=== PATIENT | female | born 1990 | race Caucasian/White ===

== ENCOUNTER 2018-06-25 01:49 | Outpatient (CLI) | payer OTHER ==
[2018-06-25] MEDS ORDERED: PROMETHAZINE HCL INJ 25 MG/1 ML VIAL IV ONE (02:01)
[2018-06-25] MEDS ORDERED: NALBUPHINE HCL INJ 10 MG/1 ML AMPULE INJ ONE (02:01)
[2018-06-25 02:26] LABS: APPEARANCE,URINE CLOUDY; BILIRUBIN,URINE NEGATIVE (NEGATIVE); COLOR,URINE YELLOW; GLUCOSE, URINE NEGATIVE (NEGATIVE); KETONES,URINE 20 mg/dL (NEGATIVE); LEUKOCYTE ESTERASE,URINE SMALL (NEGATIVE); NITRITE,URINE NEGATIVE (NEGATIVE); PROTEIN,URINE NEGATIVE (NEGATIVE); URINE SPECIFIC GRAVITY 1.009; UROBILINOGEN,URINE NEGATIVE mg/dL (<2.0)
[2018-06-25 02:41] LABS: URINE AMPHETAMINES SCREEN NEGATIVE; URINE BARBITURATES SCREEN NEGATIVE; URINE BENZODIAZEPINES SCREEN NEGATIVE; URINE COCAINE SCREEN NEGATIVE; URINE MARIJUANA (THC) SCREEN NEGATIVE; URINE METHADONE SCREEN NEGATIVE; URINE PHENCYCLIDINE SCREEN NEGATIVE
--- NOTE | 2018-06-25 03:12 | Non Stress Test Report ---
Non Stress Test Datetime Report Generated by CPN: 06/25/2018 03:11 DEMOGRAPHIC Test Number: 1 EGA NST: 37.5 INDICATION Indication for Study: Other Indication for Study (NST) Other: Labor check VITAL SIGNS Temperature - NST: 98.9 Pulse - NST: 80 RESP - NST: 18 NBPSYS NST: 119 NBPDIA NST: 66 URINE RESULTS Urine Protein, NST: Negative Urine Ketones - NST: Positive Urine Glucose - NST: Negative Urine Blood - NST: Negative MONITORING Monitor Explained: Monitor Explained; Test Explained; Patient Verbalized Understanding Time on Monitor: 06/25/2018 02:08 Time off Monitor: 06/25/2018 02:28 NST Duration: 20 NST INTERVENTIONS NST Interventions: PO Hydration Physician Notified NST: Dr. Myriam BABY A: [id number] BABY A Movement : Present Contraction Frequency : 2-2.5 FHR Baseline : 145 Accelerations : 15X15 Decelerations : None Decelerations : None Variability : Moderate 6-25bpm NST Review: Meets Criteria for Reactive NST NST Review and Verified By : NATTY Pardo Results: Reactive NST REPORT Report Trigger: Send Report
== END 2018-06-25 04:29 | disposition home or self-care (01) ==
LOC: LC 01:49
PROVIDERS: ATTEND Student in an Organized Health Care Education/Training Program
PROC: 4A1HXCZ Monitoring of Products of Conception, Cardiac Rate, External Approach (ICD-10-PCS; principal; 2018-06-25)
DX: O47.1 False labor at or after 37 completed weeks of gestation (principal); Z3A.37 37 weeks gestation of pregnancy
CPT/HCPCS: 59025; 80307; 81005

== ENCOUNTER 2018-07-14 10:34 | Outpatient (CLI) | payer OTHER | END 2018-07-14 11:20 | disposition home or self-care (01) | LOC: LC 10:34 | PROVIDERS: ATTEND Obstetrics & Gynecology | PROC: 4A1HXCZ Monitoring of Products of Conception, Cardiac Rate, External Approach (ICD-10-PCS; principal; 2018-07-14) | DX: O48.0 Post-term pregnancy (principal); Z3A.40 40 weeks gestation of pregnancy | CPT/HCPCS: 59025 ==

== ENCOUNTER 2018-07-15 22:09 | Outpatient (CLI) | payer OTHER ==
--- NOTE | 2018-07-15 22:14 | Non Stress Test Report ---
Non Stress Test Datetime Report Generated by CPN: 07/15/2018 22:14 DEMOGRAPHIC Test Number: 2 EGA NST: 40.3 INDICATION Indication for Study: Ordered by Provider Indication for Study (NST) Other: postdates MONITORING Monitor Explained: Monitor Explained; Test Explained; Patient Verbalized Understanding Time on Monitor: 07/14/2018 10:43 Time off Monitor: 07/14/2018 11:20 NST Duration: 37 NST INTERVENTIONS NST Interventions: PO Hydration; Reposition Patient Physician Notified NST: J Rosales CNM BABY A: [id number] BABY A Movement : Present Contraction Frequency : X2 FHR Baseline : 140 Accelerations : 15X15 Decelerations : None Variability : Moderate 6-25bpm NST Review: Meets Criteria for Reactive NST NST Review and Verified By : Reed KANG RN NST Results: Reactive NST REPORT Report Trigger: Send Report
[2018-07-15 22:47] LABS: APPEARANCE,URINE SLIGHTLY-CLOUDY; BILIRUBIN,URINE NEGATIVE (NEGATIVE); COLOR,URINE YELLOW; GLUCOSE, URINE NEGATIVE (NEGATIVE); KETONES,URINE 20 mg/dL (NEGATIVE); LEUKOCYTE ESTERASE,URINE NEGATIVE (NEGATIVE); NITRITE,URINE NEGATIVE (NEGATIVE); PROTEIN,URINE NEGATIVE (NEGATIVE); URINE SPECIFIC GRAVITY 1.012; UROBILINOGEN,URINE NEGATIVE mg/dL (<2.0)
[2018-07-15 23:26] LABS: URINE AMPHETAMINES SCREEN NEGATIVE; URINE BARBITURATES SCREEN NEGATIVE; URINE BENZODIAZEPINES SCREEN NEGATIVE; URINE COCAINE SCREEN NEGATIVE; URINE MARIJUANA (THC) SCREEN NEGATIVE; URINE METHADONE SCREEN NEGATIVE; URINE PHENCYCLIDINE SCREEN NEGATIVE
== END 2018-07-16 00:52 | disposition home or self-care (01) ==
LOC: LC 22:09
PROVIDERS: ATTEND Obstetrics & Gynecology
PROC: 4A1HXCZ Monitoring of Products of Conception, Cardiac Rate, External Approach (ICD-10-PCS; principal; 2018-07-15)
DX: O48.0 Post-term pregnancy (principal); Z3A.40 40 weeks gestation of pregnancy
CPT/HCPCS: 80307; 81005

== ENCOUNTER 2018-07-16 01:01 | Inpatient (IN) | payer OTHER ==
[2018-07-16] MEDS: RINGERS SOLUTION,LACTATED 1,000 ML IV PRN ×2 (01:24→03:47)
[2018-07-16 01:30] LABS: ABSOLUTE LYMPHOCYTES (AUTO) 2.1 10^3/uL (0.5-4.7); ABSOLUTE MONOCYTES (AUTO) 0.9 10^3/uL (0.1-1.4); BASOPHILS % (AUTO) 0.5 % (0-2); EOSINOPHILS % (AUTO) 0.4 % (0-6); HEMATOCRIT 37.3 % (36.0-47.0); HEMOGLOBIN 12.7 g/dL (12.0-15.5); LYMPHOCYTES % (AUTO) 23.3 % (13-45); MEAN CORPUSCULAR HEMOGLOBIN 29.1 pg (27.0-33.4); MEAN CORPUSCULAR HGB CONC 34.1 g/dL (32.0-36.0); MEAN CORPUSCULAR VOLUME 85 fl (80-97); MONOCYTES % (AUTO) 9.6 % (3-13); PLATELET COUNT 132 10^3/uL (150-450); RED BLOOD COUNT 4.37 10^6/uL (3.72-5.28); SEGMENTED NEUTROPHILS % (AUTO) 66.2 % (42-78); TOTAL CELLS COUNTED % (AUTO) 100 %; WHITE BLOOD COUNT 9.1 10^3/uL (4.0-10.5)
[2018-07-16] MEDS ORDERED: EPHEDRINE SULFATE INJ 50 MG/1 ML AMPULE ONE (03:58)
[2018-07-16] MEDS ORDERED: FENTANYL/BUPIVACAINE/NS/PF 300 MCG/150 ML RTUINJ EPI ONE (03:58)
[2018-07-16] MEDS ORDERED: FENTANYL CITRATE INJ/PF 100 MCG/2 ML AMPUL ONE (03:58)
[2018-07-16] MEDS ORDERED: BUPIVACAINE HCL 0.25 % INJ/PF (2.5 MG/1 ML) 30 ML VIAL ONE (03:58)
[2018-07-16] MEDS ORDERED: LIDOCAINE 2%/EPINEPHRINE INJ 20 ML VIAL ONE (03:59)
--- NOTE | 2018-07-16 05:01 | L&D Progress Notes ---
PROGRESS NOTES Datetime Report Generated by CPN: 07/16/2018 05:01 PROGRESS NOTE Impression: Normal Progression of Labor; Rupture of Membranes Plan: Continue Present Management Informed Consent Obtained: Vaginal Delivery Vital Signs : Reviewed; Within Normal Limits Comment: @ 40+5, uncomplicated PNC, admitted w/SROM. Has progressed to 2, currently has a epidural. GBS neg. anticapate . LAST VAGINAL EXAM-NURSING Dilitation: 5.0 Dilitation: 3.0 Dilitation: 2.5 Dilitation: 1.0 Dilitation: 1.0 Effacement: 60 Effacement: 60 Effacement: 50 Effacement: 50 Effacement: 50 Station: -2 Station: -2 Station: -2 Station: -3 Station: -3 FETUS A FHR - Baseline: 130s Monitoring: External US Variability: Moderate 6-25bpm Decelerations: None : 40+5 Estimated Weight (gm): 4200 SIGNATURE SIGNATURE: [id number] SIGNATURE: [id number] SIGNATURE: [id number] Signature: with User ID: [email or web address]
[2018-07-16] MEDS ORDERED: LIDOCAINE 1% INJ-PF (10 MG/ML) 30 ML SDV ONE (05:40)
[2018-07-16] MEDS ORDERED: MISOPROSTOL 0.2 MG TABLET ONE (05:40)
[2018-07-16] MEDS ORDERED: OXYTOCIN/NORMAL SALINE 20 UNIT/1,000 ML RTUINJ ONE (05:40)
[2018-07-16] MEDS ORDERED: OXYTOCIN/NORMAL SALINE 20 UNIT/1,000 ML RTUINJ IV PRN ×2 (05:46→10:53)
--- NOTE | 2018-07-16 06:40 | Non Stress Test Report ---
Non Stress Test Datetime Report Generated by CPN: 07/16/2018 06:40 DEMOGRAPHIC EGA NST: 40.4 INDICATION Indication for Study: Ordered by Provider MONITORING Monitor Explained: Monitor Explained; Test Explained; Patient Verbalized Understanding Time on Monitor: 07/15/2018 22:33 Time off Monitor: 07/16/2018 00:21 NST Duration: 108 NST INTERVENTIONS NST Interventions: PO Hydration Physician Notified NST: Dr. Whitlock BABY A Movement : Present Contraction Frequency : Irregular FHR Baseline : 135 Accelerations : 15X15 Decelerations : None Variability : Moderate 6-25bpm NST Review: Meets Criteria for Reactive NST NST Review and Verified By : Luis F Fritz RN NST REPORT Report Trigger: Send Report
[2018-07-16] MEDS ORDERED: BENZOCAINE/MENTHOL AEROSOL SPRAY 56 ML TOP PRN (10:53)
[2018-07-16] MEDS ORDERED: ZOLPIDEM TARTRATE 5 MG TABLET PO PRN (10:53)
[2018-07-16] MEDS ORDERED: DIPH/PERTUSS(ACELL)/TETANUS VAC/PF 0.5 ML SYR (>=10YO) IM PRN (10:53)
[2018-07-16] MEDS ORDERED: ACETAMINOPHEN WITH CODEINE #3 TABLET PO PRN ×2 (10:53)
[2018-07-16] MEDS ORDERED: DIBUCAINE 1% OINTMENT 56 GM TP PRN (10:53)
--- NOTE | 2018-07-16 12:50 | Delivery Summary ---
Del Sum A-C Datetime Report Generated by CPN: 07/16/2018 12:49 DELIVERY PERSONNEL DELIVERY PERSONNEL: [id number] Delivery Doctor:: Danielle Mcmahan MD Labor and Delivery Nurse:: Tavia Montelongo RNcoverstitch binder Nurse:: Shala Mota RN Karate Instructor/COD CLERK: Rebeka Day, ST Karate Instructor/COD CLERK: Larissa Lopez, BRAKE REPAIR SUPERVISOR MATERNAL INFORMATION Delivery Anesthesia: Epidural Medications After Delivery: Pitocin Drip 20 Units/1000ml NSS Estimated Blood Loss (ml): 200 Maternal Complications: None Provider Comments: of a viable male @ 1026 with an JENNIFER w/ tight nuchal cord x 2, body cord x 1 and left compound hand presentation; shoulder dystocia resolved with Marvin and suprapubic pressure; APGARS 6, 9 LABOR SUMMARY EDC: 07/11/2018 00:00 No. Babies in Womb: 1 Attempted: No Labor Anesthesia: Epidural LABOR INFORMATION Reason for Induction: Not Applicable Onset of Labor: 07/16/2018 01:00 Complete Dilatation: 07/16/2018 09:07 Oxytocin: Augmentation Group B Beta Strep: Negative Antibiotics # of Doses: 0 Antibiotics Time of Last Dose: N/A Steroids Given: None Reason Steroids Not Administered: Not Applicable MEMBRANES Membranes Rupture Method: Spontaneous Rupture of Membranes: 07/16/2018 01:00 Length of Rupture (hr): 8.43 Amniotic Fluid Color: Clear Amniotic Fluid Amount: Small Amniotic Fluid Odor: Normal STAGES OF LABOR Stage 1 hr: 7 Stage 1 min: 7 Stage 2 hr: 1 Stage 2 min: 19 Stage 3 hr: 0 Stage 3 min: 3 Total Time in Labor hr: 8 Total Time in Labor min: 29 VAGINAL DELIVERY Episiotomy: None Laceration #1: Perineal Laceration Extension #1: Second Degree Laceration #2: Vaginal Laceration Extension #2: First Degree Other Laceration: vaginal midline Laceration Repair: Yes Laceration Repair Note: Both lacs repaired with 2-0 chromic Sponge Count Correct: Yes Sharps Count Correct: Yes CSECTION DELIVERY Primary Indication: N/A Secondary Indication: N/A CSection Incidence: N/A Labor: N/A Elective: N/A CSection Incision: N/A BABY A INFORMATION Infant Delivery Date/Time: 07/16/2018 10:26 Method of Delivery: Vaginal Born in Route : No : N/A Forceps: N/A Vacuum Extraction: N/A Shoulder Dystocia : Yes SHOULDER DYSTOCIA BABY A Delivery of Head: 07/16/2018 10:25 Time Head to Delivery : 1.0 1st Intervention to Resolve: Gentle Attempt at Traction, Assisted by Maternal Expulsive Efforts 2nd Intervention to Resolve: McRobert's Maneuver 3rd Intervention to Resolve: Suprapubic Pressure Verify NO Fundal Pressure: No Fundal Pressure Applied Arm Under Symphisis at Del: Right Shoulder Dystocia Comments: 1.35 min head to body PRESENTATION/POSITION BABY A Presentation: Cephalic Cephalic Presentation: Vertex Vertex Position: Left Occipital Anterior Breech Presentation: N/A PLACENTA INFORMATION BABY A Placenta Delivery Time : 07/16/2018 10:29 Placenta Method of Delivery: Spontaneous Placenta Status: Delivered SCORES BABY A Heart Rate 1 min: >100 bpm Resp Effort 1 min: Absent Reflex Irritability 1 min: Cough or Sneeze or Pulls Away Muscle Tone 1 min: Active Motion Color 1 min: Blue/Pale Resuscitation Effort 1 min: Tactile Stimulation SCORE 1 MIN: 6 Heart Rate 5 min: >100 bpm Resp Effort 5 min: Good Cry Reflex Irritability 5 min: Cough or Sneeze or Pulls Away Muscle Tone 5 min: Active Motion Color 5 min: Body Coffey, Extremities Blue SCORE 5 MIN: 9 INFORMATION BABY A Gestational Age at Delivery: 40.5 Gestational Status: Full Term- 39- 40.6 Weeks Infant Outcome : Liveborn Condition : Stable Sex: Male IDENTIFICATION BABY A Infant Verification Date/Time: 07/16/2018 10:40 ID Band Number: [id number] Mother's Name Verified: Yes RN Verifying Infant: Lynn cheema RN Additional Verifying Personnel: Reed Ballesteros RN WEIGHT/LENGTH BABY A Birthweight (gm): 4684 Weight (lb): 10 Infant Weight (oz): 5 Infant Length (in): 22.00 Infant Length (cm): 55.88 CORD INFORMATION BABY A No. Cord Vessels: 3 Nuchal Cord : Around Neck x2, Tight Cord Blood Taken: Yes-For Eval (Mom's Blood Type - or O+) Infant Suction: None ASSESSMENT BABY A Infant Complications: Multiple Late Decels; Multiple Variable Decels; Shoulder Dystocia Physical Findings at Delivery: Within Normal Limits; Bruising Infant Respirations: Appears Normal Skin to Skin: Yes Skin to Skin Time (min): 90 Church Warden/ALS Called : No Infant Care By: Lupis Chen, RN Transferred To: Remains with Mother BABY B INFORMATION : N/A SIGNATURES Signature: with User ID: [email or web address]
[2018-07-16] MEDS: IBUPROFEN 800 MG TABLET PO SCH ×2 (14:44→21:06)
[2018-07-16] MEDS: DOCUSATE SODIUM 100 MG CAPSULE PO SCH (17:42)
[2018-07-16] MEDS: FERROUS SULFATE 325 MG TABLET PO SCH (17:42)
[2018-07-17] MEDS: IBUPROFEN 800 MG TABLET PO SCH ×3 (05:58→21:49)
[2018-07-17 08:21] LABS: HEMATOCRIT 32.6 % (36.0-47.0); HEMOGLOBIN 11.2 g/dL (12.0-15.5); MEAN CORPUSCULAR HEMOGLOBIN 29.3 pg (27.0-33.4); MEAN CORPUSCULAR HGB CONC 34.2 g/dL (32.0-36.0); MEAN CORPUSCULAR VOLUME 86 fl (80-97); PLATELET COUNT 105 10^3/uL (150-450); RED CELL DISTRIBUTION WIDTH 15.8 % (11.5-14.0); WHITE BLOOD COUNT 6.5 10^3/uL (4.0-10.5)
[2018-07-17] MEDS: DOCUSATE SODIUM 100 MG CAPSULE PO SCH ×2 (09:31→18:59)
[2018-07-17] MEDS: SENNOSIDES/DOCUSATE 8.6-50 MG 1 EACH TABLET PO SCH (09:31)
[2018-07-17] MEDS: FERROUS SULFATE 325 MG TABLET PO SCH ×2 (09:31→18:59)
[2018-07-17] MEDS: PRENATAL VITAMIN W DHA CAPSULE PO SCH (09:31)
--- NOTE | 2018-07-17 10:57 | PDOC PROGRESS REPORT ---
Subjective-OB Progress Note for:: 07/17/18 Subjective: Pt doing well. No concerns. She reports light bleeding, regular diet, voiding without difficulty. Physical Exam (OB) Vital Signs: Temp Pulse Resp BP Pulse Ox 98.0 F 71 20 104/56 L 100 07/16/18 20:59 07/17/18 04:44 07/16/18 20:59 07/17/18 04:44 07/16/18 20:59 Intake & Output 07/16/18 07/17/18 07/18/18 06:59 06:59 06:59 Intake Total 4000 Balance 4000 Weight - Lochia Lochia Amount: Scant < 10 ml Lochia Color: Rubra/Red - Abdomen Description: Soft, Flat Hernia Present: No Fundal Description: Firm, Midline Fundal Height: u/u - u/2 Objective-Diagnostic Laboratory: 07/17/18 07:55 07/17/18 07:55 WBC 6.5 RBC 3.80 Hgb 11.2 L Hct 32.6 L MCV 86 MCH 29.3 MCHC 34.2 RDW 15.8 H Plt Count 105 L Assessment and Plan(PN) - Assessment and Plan (1) (normal spontaneous vaginal delivery) Is this a current diagnosis for this admission?: Yes - Time Spent with Patient Time with patient: Less than 15 minutes Medications reviewed and adjusted accordingly: Yes - Disposition Anticipated Discharge: Home Within: within 24 hours
[2018-07-18] MEDS: IBUPROFEN 800 MG TABLET PO SCH ×2 (06:23→13:42)
[2018-07-18] MEDS: FERROUS SULFATE 325 MG TABLET PO SCH ×2 (10:18→19:12)
[2018-07-18] MEDS: SENNOSIDES/DOCUSATE 8.6-50 MG 1 EACH TABLET PO SCH (10:18)
[2018-07-18] MEDS: DOCUSATE SODIUM 100 MG CAPSULE PO SCH ×2 (10:18→19:12)
[2018-07-18] MEDS: PRENATAL VITAMIN W DHA CAPSULE PO SCH (10:19)
--- NOTE | 2018-07-18 10:32 | PDOC DISCHARGE SUMMARY ---
Final Diagnosis Discharge Date: 07/18/18 - Final Diagnosis (1) (normal spontaneous vaginal delivery) Is this a current diagnosis for this admission?: Yes (2) Obstetrical laceration, second degree Is this a current diagnosis for this admission?: Yes (3) Shoulder dystocia during labor and delivery, delivered Is this a current diagnosis for this admission?: Yes Discharge Data - Discharge Medication Prescriptions: Ibuprofen [Motrin 800 mg Tablet] 800 mg PO Q8HP PRN #90 tablet PRN Reason: Home Medications: Pnv No.95/Ferrous Fum/Folic AC [ Vitamin Tablet] 1 each PO DAILY 06/25/18 Ibuprofen [Motrin 800 mg Tablet] 800 mg PO Q8HP PRN #90 tablet 07/18/18 Procedures: NST Intrapartum Procedure(s): Spontaneous Vaginal Delivery Complication(s): Laceration-Perineal Laceration-Degree: 2nd - Diagnosis Test Laboratory: Temp Pulse Resp BP Pulse Ox 98.2 F 59 L 16 120/67 100 07/18/18 07:40 07/18/18 07:40 07/18/18 07:40 07/18/18 07:40 07/18/18 07:40 07/16/18 07/17/18 01:19 07:55 RBC 4.37 3.80 Hgb 12.7 11.2 L Hct 37.3 32.6 L - Discharge information/Instructions Discharge Activity: Activity As Tolerated, Pelvic Rest Discharge Diet: Regular Disposition: HOME, SELF-CARE Follow up with: [facility] in: 4, Weeks
[2018-07-18 14:12] VITALS: BP 122/73
--- NOTE | 2018-08-06 17:18 | PDOC H&P ---
History of Present Illness Admission Date/PCP: 07/16/18 01:10 ROBERT YADAV MD Patient complains of: SROM History of Present Illness: DIYA SHEPHERD is a 27 year old female at 40+5 wks admitted with SROM. PNC otherwise uncomplicated. Past Surgical History Past Surgical History: Reports: None Social History Lives with: Spouse/Significant other Smoking Status: Never Smoker Family History Family History: None Parental Family History Reviewed: No Children Family History Reviewed: No Sibling(s) Family History Reviewed.: No Medication/Allergy Home Medications: Pnv No.95/Ferrous Fum/Folic AC [ Vitamin Tablet] 1 each PO DAILY 06/25/18 Ibuprofen [Motrin 800 mg Tablet] 800 mg PO Q8HP PRN #90 tablet 07/18/18 Allergies/Adverse Reactions: No Known Allergies Allergy (Verified 07/16/18 01:28) Physical Exam - Physical Exam Vital Signs: Temp Pulse Resp BP Pulse Ox 98.2 F 59 L 16 122/73 100 07/18/18 14:11 07/18/18 14:11 07/18/18 14:11 07/18/18 14:11 07/18/18 14:11 General appearance: PRESENT: no acute distress, well-developed, well-nourished Head exam: PRESENT: atraumatic, normocephalic - Obstetrical Exam External Genitalia: normal - +amniotic fluid Vagina: normal Dilation (cm): 4 Effacement (%): 50 Station: -2 Result Laboratory Results: 07/17/18 07:55 Assessment & Plan - Diagnosis (1) SROM (spontaneous rupture of membranes) Is this a current diagnosis for this admission?: Yes Plan: Admit for anticipated (2) Term Plan: Admit for
== END 2018-07-18 19:24 | disposition home or self-care (01) | DRG 807 ==
LOC: LC 01:01 → LR 01:10 → 2S 13:15
PROVIDERS: ADMIT Obstetrics & Gynecology; ATTEND Obstetrics & Gynecology
PROC: 10E0XZZ Delivery of Products of Conception, External Approach (ICD-10-PCS; principal; 2018-07-16)
PROC: 0KQM0ZZ Repair Perineum Muscle, Open Approach (ICD-10-PCS; 2018-07-16)
DX: O69.1XX0 Labor and delivery complicated by cord around neck, with compression, not applicable or unspecified (principal); Z37.0 Single live birth; O69.2XX0 Labor and delivery complicated by other cord entanglement, with compression, not applicable or unspecified; O76 Abnormality in fetal heart rate and rhythm complicating labor and delivery; O32.2XX0 Maternal care for transverse and oblique lie, not applicable or unspecified; O32.6XX0 Maternal care for compound presentation, not applicable or unspecified; O70.1 Second degree perineal laceration during delivery; O66.0 Obstructed labor due to shoulder dystocia; O99.214 Obesity complicating childbirth; Z3A.40 40 weeks gestation of pregnancy
CPT/HCPCS: 36415; 85025; 85027; 86592; 86850; 86900; 86901; J2590; J3010; J3490